=== PATIENT | female | born 1990 | race Two or more races ===

== ENCOUNTER 2019-04-15 10:57 | Emergency (ER) | payer OTHER ==
[~2019-04-15] VITALS: Ht 162.6 cm; Wt 49.9 kg
== END 2019-04-15 15:42 | disposition home or self-care (01) ==
LOC: ER 10:57
DX: O26.851 Spotting complicating pregnancy, first trimester (principal); O20.0 Threatened abortion; O36.80X0 Pregnancy with inconclusive fetal viability, not applicable or unspecified

== ENCOUNTER 2019-04-18 11:35 | Outpatient (CLI) | payer OTHER | END 2019-04-18 11:39 | disposition home or self-care (01) | LOC: LAB 11:35 | DX: O20.0 Threatened abortion (principal) ==

== ENCOUNTER 2019-04-20 10:24 | Outpatient (CLI) | payer OTHER | END 2019-04-20 10:40 | disposition home or self-care (01) | LOC: SONOGRAMA 10:24 | DX: O20.0 Threatened abortion (principal) ==

== ENCOUNTER 2019-04-22 06:03 | Day surgery (SDC) | payer OTHER | END 2019-04-22 13:25 | disposition home or self-care (01) | LOC: CIR.AMB 06:03 | DX: O02.1 Missed abortion (principal); N84.0 Polyp of corpus uteri ==

== ENCOUNTER 2021-07-22 18:11 | Emergency (ER) | payer OTHER ==
[~2021-07-22] VITALS: Ht 162.6 cm; Wt 56.7 kg
[2021-07-22] MEDS ORDERED: PANADOL (18:46)
[2021-07-22] MEDS ORDERED: [UNRECOGNIZED DRUG - OTHER] (18:46)
[2021-07-22] MEDS ORDERED: TUSSIN100 MG/51 PO (20:18)
[2021-07-22] MEDS ORDERED: ZITHROMAX500 MG PO (20:18)
== END 2021-07-22 20:47 | disposition home or self-care (01) ==
LOC: ER 18:11
DX: U07.1 COVID-19 (principal)

== ENCOUNTER 2021-11-22 13:45 | Inpatient (IN) | payer OTHER ==
[~2021-11-22] VITALS: Ht 162.6 cm; Wt 63.5 kg
[~2021-11-22 13:45] MED LIST: PANADOL; TUSSIN100 MG/51 PO; ZITHROMAX500 MG PO; [UNRECOGNIZED DRUG - OTHER]
[2021-12-03] MEDS ORDERED: PRENATAL TABLE1 EAC1 PO (10:14)
[2021-12-03] MEDS ORDERED: IRON325 MG PO (10:14)
[2021-12-03] MEDS ORDERED: PANADOL EXTRA500 MG (11:53)
== END 2021-12-05 13:58 | disposition home or self-care (01) | DRG 807 ==
LOC: LDR 12-03 08:28 → OB/GYN 12-03 13:45
PROVIDERS: ADMIT Specialist; ATTEND Specialist
PROC: 10E0XZZ Delivery of Products of Conception, External Approach (ICD-10-PCS; principal; 2021-12-03)
PROC: 0W8NXZZ Division of Female Perineum, External Approach (ICD-10-PCS; 2021-12-03)
PROC: 4A1HXCZ Monitoring of Products of Conception, Cardiac Rate, External Approach (ICD-10-PCS; 2021-12-03)
DX: O80 Encounter for full-term uncomplicated delivery (principal); Z37.0 Single live birth; Z3A.40 40 weeks gestation of pregnancy; Z20.822 Contact with and (suspected) exposure to COVID-19